=== PATIENT | female | born 1965 | race Caucasian/White ===

== ENCOUNTER → 2023-06-23 10:11 | Outpatient (BNVA) | payer MEDICAID, SELFPAY | PROVIDERS: Visit Provider Registered Nurse Neonatal Intensive Care | DX: Z20.828 Contact with and (suspected) exposure to other viral communicable diseases (principal) | CPT/HCPCS: 87400 ==

== ENCOUNTER 2023-11-01 13:01 | Outpatient (CLI) | payer OTHER, MEDICAID, SELFPAY ==
--- NOTE | 2023-11-01 13:07 | MM_ITS ---
WS: [id number] BILATERAL 3D TOMOSYNTHESIS DIGITAL SCREENING MAMMOGRAPHY WITH CAD CLINICAL INFORMATION: SCREENING HISTORY: Screening mammogram. No current complaints. COMPARISON: None. TECHNIQUE: Bilateral CC and MLO views. FINDINGS: Bilateral breast implants. The breasts are composed of heterogeneous fibroglandular density tissue, which can limit the detectio n of small underlying mass lesions. No suspicious mass, asymmetry, calcifications, or architectural d istortion. No evidence of malignancy. A few incidental punctate and lucent centered calcifications. MM/[place] [id number] IMPRESSION: BI-RADS: 2-Benign FOLLOW UP: 1 Year Follow-up Recommend return to annual screening mammography.
== END 2023-11-01 13:02 | disposition home or self-care (01) ==
LOC: RAD 13:01
PROVIDERS: Visit Provider Nurse Practitioner
DX: Z12.31 Encounter for screening mammogram for malignant neoplasm of breast (principal); R92.333 Mammographic heterogeneous density, bilateral breasts; R92.1 Mammographic calcification found on diagnostic imaging of breast
CPT/HCPCS: 77063; 77067

== ENCOUNTER → 2024-01-17 09:23 | Outpatient (BNVA) | payer OTHER, MEDICAID, SELFPAY | PROVIDERS: Visit Provider Family Medicine | DX: J98.8 Other specified respiratory disorders (principal) | CPT/HCPCS: 87400 ==

== ENCOUNTER → 2024-04-11 13:10 | Outpatient (BNVA) | payer OTHER, MEDICAID, SELFPAY | PROVIDERS: Visit Provider Podiatrist Foot & Ankle Surgery | DX: M79.672 Pain in left foot (principal); M20.22 Hallux rigidus, left foot | CPT/HCPCS: 73630 ==

== ENCOUNTER → 2024-04-13 10:30 | Outpatient (BNVA) | payer OTHER, MEDICAID, SELFPAY | PROVIDERS: Visit Provider Family Medicine | DX: Z00.00 Encounter for general adult medical examination without abnormal findings (principal); R00.2 Palpitations; K21.9 Gastro-esophageal reflux disease without esophagitis; E78.00 Pure hypercholesterolemia, unspecified; J45.40 Moderate persistent asthma, uncomplicated; F41.1 Generalized anxiety disorder; Z86.718 Personal history of other venous thrombosis and embolism; Z86.73 Personal history of transient ischemic attack (TIA), and cerebral infarction without residual deficits; K63.5 Polyp of colon; Z76.89 Persons encountering health services in other specified circumstances | CPT/HCPCS: 93005 ==

== ENCOUNTER → 2024-04-16 11:11 | Outpatient (BNVA) | payer OTHER, MEDICAID, SELFPAY | PROVIDERS: Visit Provider Nurse Practitioner | DX: M25.561 Pain in right knee (principal); M25.562 Pain in left knee; S83.242A Other tear of medial meniscus, current injury, left knee, initial encounter; M17.0 Bilateral primary osteoarthritis of knee; X58.XXXA Exposure to other specified factors, initial encounter; Z46.89 Encounter for fitting and adjustment of other specified devices | CPT/HCPCS: 73560; 73565 ==

== ENCOUNTER 2024-04-16 11:45 | Outpatient (CLI) | payer OTHER, MEDICAID, SELFPAY | END 2024-04-16 11:46 | disposition home or self-care (01) | LOC: SPT 11:46 | PROVIDERS: Visit Provider Nurse Practitioner | DX: Z46.89 Encounter for fitting and adjustment of other specified devices (principal); S83.206A Unspecified tear of unspecified meniscus, current injury, right knee, initial encounter; M17.0 Bilateral primary osteoarthritis of knee; X58.XXXA Exposure to other specified factors, initial encounter | CPT/HCPCS: L1812 ==

== ENCOUNTER 2024-04-23 11:14 | Outpatient (CLI) | payer OTHER, MEDICAID, SELFPAY ==
--- NOTE | 2024-04-23 11:45 | MR_ITS ---
WS: [id number] MRI RIGHT KNEE HISTORY: Right knee pain, locking and instability after fall COMPARISON: Radiograph 04/16/2024 Anterior cruciate ligament: Intact. Posterior cruciate ligament: Intact. Medial collateral ligament: Intact. Posterior lateral corner structures: Intact. Medial menisci: Abnormal contour of the posterior medial meniscus. Rounded contour of the posterior m eniscus. There is an additional low signal interbody signal measuring 3 x 5 mm which may be a menisca l fragment. Interbody fragment is adjacent to the PCL and medial to the midline. Lateral meniscus: Intact. Normal signal, size and shape. Extensor mechanism: Distal quadriceps tendon and patellar tendons are intact. Fluid and soft tissue: Small joint effusion. Moderate-sized Branham's cyst with internal heterogeneity extends over a length of 4.9 cm. Osseous and articular structures: Patellofemoral compartment: Mild loss of cartilage. Focal subchondral edema along the patellar eminen ce. Medial compartment: Mild narrowing of the medial compartment with diffuse chondromalacia. Lateral compartment: Mild narrowing of the lateral compartment with mild chondromalacia. Marrow edema along the anterior midline of the tibial plateau. MR/MR knee RT wo con* [id number] IMPRESSION: 1. Abnormal shape posterior horn medial meniscus with interbody low signal fra gment measuring 3 x 5 mm. This could very well be meniscal fragment adjacent to the PCL. 2. Marrow edema along the tibial plateau, just greatest lateral to the midline . No fracture identified. 3. Tricompartment osteoarthritis and chondromalacia. 4. Mildly complex Branham's cyst extends over a length of 4.9 cm.
== END 2024-04-23 11:15 | disposition home or self-care (01) ==
LOC: RAD 11:14
PROVIDERS: Visit Provider Nurse Practitioner
DX: S83.206A Unspecified tear of unspecified meniscus, current injury, right knee, initial encounter (principal); M25.561 Pain in right knee; X58.XXXA Exposure to other specified factors, initial encounter; R93.6 Abnormal findings on diagnostic imaging of limbs; M17.11 Unilateral primary osteoarthritis, right knee; M94.261 Chondromalacia, right knee; M71.21 Synovial cyst of popliteal space [Baker], right knee
CPT/HCPCS: 73721

== ENCOUNTER 2024-05-21 10:33 | Emergency (ER) | payer OTHER, MEDICAID, SELFPAY ==
--- NOTE | 2024-05-21 10:42 | XRR_ITS ---
PROCEDURE INFORMATION: Exam: XR Chest Exam date and time: 05/21/2024 10:47 AM Age: 58 years old Clinical indication: Cough; Additional info: Cough/congestion TECHNIQUE: Imaging protocol: Radiologic exam of the chest. Views: 1 view. COMPARISON: No relevant prior studies available. FINDINGS: Lungs: Unremarkable. No consolidation. Pleural spaces: Unremarkable. No pleural effusion. No pneumothorax. Heart/Mediastinum: Unremarkable. No cardiomegaly. Bones/joints: Unremarkable. XR/XR chest 1V portable [id number] IMPRESSION: No acute findings.
[2024-05-21 11:14] VITALS: BP 154/89; PULSE 89; TEMP 36.8; O2SAT 98; BMI 29.8
[2024-05-21 12:25] LABS: Influenza A NEGATIVE (Negative); Influenza B NEGATIVE (Negative); SARS-CoV-2 PCR NEGATIVE (Negative)
[2024-05-21 12:50] LABS: Respiratory Syncytial Virus Ce POSITIVE (Negative)
== END 2024-05-21 12:39 | disposition left against medical advice (07) ==
PROVIDERS: Physician Assistant; Emergency Provider Family Medicine; PCP Family Medicine
DX: Z53.21 Procedure and treatment not carried out due to patient leaving prior to being seen by health care provider (principal)
CPT/HCPCS: 71045; 87637

== ENCOUNTER 2024-06-12 14:50 | Outpatient (CLI) | payer OTHER, SELFPAY ==
[2024-06-12 16:22] LABS: Basophils # 0.1 10^3/uL (0.0-0.1); Basophils % 1.1 %; Eosinophils # 0.4 10^3/uL (0.0-0.8); Hematocrit 41.4 % (36-47); Lymphocytes % 35.9 %; Mean Corpuscular HGB Conc 33.3 g/dL (30-55); Mean Corpuscular Hemoglobin 28.5 pg (27-33); Mean Corpuscular Volume 85.4 fl (85-98); Mean Platelet Volume 9.5 fL (7.4-10.4); Monocytes # 0.7 10^3/uL (0.2-0.9); Monocytes % 7.8 %; Neutrophils # 4.15 10^3/uL (1.8-7.7); Nucleated Red Blood Cells % 0 %; Platelet Count 286 10^3/cmm (157-399); Red Blood Count 4.85 10^6/uL (3.85-5.65); Red Cell Distribution Width 14.2 % (12.1-15.1); White Blood Count 8.32 10^3/uL (3.29-11.43)
== END 2024-06-12 14:51 | disposition home or self-care (01) ==
PROVIDERS: PCP Family Medicine; Visit Provider Family Medicine
DX: Z00.00 Encounter for general adult medical examination without abnormal findings (principal)
CPT/HCPCS: 36415; 85025

== ENCOUNTER 2024-06-21 16:11 | Outpatient (CLI) | payer OTHER, SELFPAY ==
[2024-06-21 17:53] LABS: Alanine Aminotransferase 28 U/L (0-33); Albumin Level 4.2 g/dL (3.5-5.2); Alkaline Phosphatase 112 U/L (35-105); Anion Gap 16.6 (5-19); Aspartate Amino Transferase 26 U/L (0-32); Blood Urea Nitrogen 17 mg/dL (6-20); Carbon Dioxide 25 mmol/L (22-29); Chloride 101 mmol/L (98-107); Chol HDL Ratio 2.07 mg/dL (0.0-4.40); Cholesterol 168 mg/dL (0-200); Globulin 3.1 g/dL (1.3-4.6); Glomerular Filtration Rate 127.2 mL/min (90-130); Glucose 114 mg/dL (65-115); HDL Cholesterol 81 mg/dL (60-100); LDL Cholesterol Calculated 74 mg/dL (50-129); LDL HDL Ratio 0.91 RATIO (0.00-3.22); Osmolality Calculated 290 mOsm/kg (285-295); Potassium 3.6 mmol/L (3.5-5.1); Sodium 139 mmol/L (136-145); Thyroid Stimulating Hormone 4.95 uIU/mL (0.27-4.20); Total Bilirubin 0.2 mg/dL (0.15-1.2); Total Protein 7.3 g/dL (6.6-8.7); Triglycerides 64 mg/dL (0-150)
== END 2024-06-21 16:12 | disposition home or self-care (01) ==
LOC: LAB 16:12
PROVIDERS: PCP Family Medicine; Visit Provider Family Medicine
DX: Z00.00 Encounter for general adult medical examination without abnormal findings (principal)
CPT/HCPCS: 36415; 80053; 80061; 84443

== ENCOUNTER → 2024-06-25 12:39 | Outpatient (BNVA) | payer OTHER, SELFPAY | PROVIDERS: PCP Family Medicine; Visit Provider Family Medicine | DX: R68.89 Other general symptoms and signs (principal); R50.9 Fever, unspecified | CPT/HCPCS: 87400; 87426 ==

== ENCOUNTER 2024-07-11 07:04 | Emergency (ER) | payer OTHER, SELFPAY ==
[2024-07-11 07:10] VITALS: BP 168/86; PULSE 86; RESP 18; TEMP 36.6; O2SAT 99
--- NOTE | 2024-07-11 07:18 | ED_ITS ---
HPI - Skin/Abscess/Foreign Bdy 2 General: Chief complaint: Skin/Abscess/Foreign Body Stated complaint: facial swelling Time Seen by Provider: 07/11/24 07:06 History of Present Illness: 58-year-old female presents emergency ro om complaining of swelling in her right thigh and some redness. She was seen by her doctor yesterday and thought she had a conjunctivitis she was started on moxifloxacin. This morning she woke up she has increased discomfort on her cheek with increased swelling her vision is unchanged. Associated symptoms: Deny chills or fever(s) Related Data Home Medications ?Medication ?Instructions ?Recorded ?Confirmed aspirin 81 mg tablet,delayed 81 mg PO DAILY 04/13/24 0 07/11/24 release Previous Rx's ?Medication ?Instructions ?Recorded albuterol sulfate 90 mcg/actuation 2 puff inhalation Q 6H PRN 04/13/24 aerosol inhaler shortness of breath or wheez ing #3 ea montelukast 10 mg tablet 10 mg PO DAILY #90 tabs 03/28 10/19 (Singulair) omeprazole 20 mg capsule,delayed 20 mg PO DAILY #90 ca ps 04/13/24 release rosuvastatin 10 mg tablet (Crestor) 10 mg PO DAILY #90 tabs 04/13/24 venlafaxine 75 mg capsule,extended 75 mg PO DAILY #90 caps 04/13/24 release 24 hr (Effexor XR) meloxicam 15 mg tablet 15 mg PO DAILY #90 tabs 03/29 levothyroxine 50 mcg tablet 50 mcg PO DAILY #90 tabs 0 06/22/24 (Euthyrox) ondansetron 8 mg disintegrating 8 mg PO Q8H PRN nausea and 06/25/24 tablet vomiting #15 tabs amoxicillin 875 mg-potassium 1 tab PO BID #14 tabs clavulanate 125 mg tablet Allergies Allergy/AdvReac Type Severity Reaction Status Date / Time sulfa drugs Allergy hives Uncoded 07/10/24 08:46 Review of Systems 2 Const: Denies: fever(s) or chills Card: Denies: chest pain Resp: Denies: dyspnea GI: Denies: abdominal pain : Denies: dysuria, urinary frequency or urinary urgency Musc: Denies: neck pain or back pain Skin/Breast: Denies: rash PFSH ED 2 PFSH: Medical History Moderate intrinsic asthma 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; no residual ; says it was due to covid shot Hx of deep venous thrombosis had 2 separate ones GERD without esophagitis Generalized anxiety disorder Hypercholesterolemia Colon polyps Hearing deficit Surgical History Hx of colonoscopy Hx of arthroscopy of right knee History of tympanoplasty of left ear bilateral H/O breast augmentation History of partial hysterectomy removed L oophorectomy; still has R ovary; done for heavy bleeding, no fibroids History of placement of ear tubes History of cholecystectomy H/O shoulder surgery right H/O foot surgery L foot; has 4 screws Family History Father No problems noted. 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 Physical Exam 2 Const: GENERAL APPEARANCE: cooperative ORIENTATION/CONSCIOUSNESS: Yes awake, Yes oriented to person, Yes oriented to place and Yes oriented to time HENMT: COMMON NORMALS: normocephalic, atraumatic and hearing grossly normal bilaterally HEAD & SCALP: normocephalic and atraumatic Resp: COMMON NORMALS: normal respiratory effort, No retractions, No use of accessory muscles and clear to auscultation bilaterally AUSCULTATION: clear to auscultation bilaterally Cardio: COMMON NORMALS: regular rate, regular rhythm and No murmurs present (Cardio) RATE: regular rate RHYTHM: regular rhythm GI: COMMON NORMALS: Soft to palpation and No hepatosplenomegaly present A USCULTATION: Yes normoactive bowel sounds PALPATION: Yes Soft to palpation, No Tenderness to palpation present (GI), No Guarding due to palpation present (GI) and Yes No hepatosplenomegaly present Extremity: COMMON NORMALS: normal to inspection, capillary refill normal, no clubbing, cyanosis or edema, no calf tenderness and no pedal edema Neuro: SENSORIUM/ORIENTATION: Yes oriented to person, Yes oriented to place and Yes oriented to time Skin: COMMON NORMALS: no rashes or lesions noted GENERAL SKIN EXAM: no rashes or lesions noted Course 2 Vital Signs: Vital signs: Vital Signs Temperature 97.8 F 07/11/24 07:10 Pulse Rate 75 07/11/24 08:53 Respiratory Rate 18 07/11/24 07:10 Blood Pressure 168/86 07/11/24 07:35 Pulse Oximetry 99 07/11/24 08:53 Oxygen Delivery Me thod Room Air 07/11/24 07:10 MDM - Skin/Abscess/Foreign Bdy Medicial Decision Making CT does not show any periorbital cellulitis L preseptal. Will discharge on Augmentin and follow-up with primary care continue the drops given previously. Medical Records I reviewed the patient's medical records. Lab Data I reviewed the patient's lab results. 07/11/24 07:18 07/11/24 07:[address] 07/11/24 07:25 IMPRESSION: 1. Mild enhancement consistent with cellulitis centered along the RIGHT orbit extending inferiorly over the RIGHT maxillary sinus. 2. No subcutaneous abscess or subperiosteal abscess identified. 3. No post septal involvement of the RIGHT orbit. Laboratory Results WBC 7.01 10^3/uL (3.29-11.43) 07/11/24 07:18 RBC 5.28 10^6/uL (3.85-5.65) 07/11/24 07:18 Hgb 14.70 g/dL (11.27-16.99) 07/11/24 07:18 Hct 45.2 % (36-47) 07/11/24 07:18 MCV 85.6 fl (85-98) 07/11/24 07:18 MCH 27.8 pg (27-33) 07/11/24 07:18 MCHC 32.5 g/dL (30-55) 07/11/24 07:18 RDW 13.8 % (12.1-15.1) 07/11/24 07:18 Plt Count 302 10^3/cmm (157-399) 07/11/24 07:18 MPV 8.4 fL (7.4-10.4) 07/11/24 07:18 Neut % (Auto) 44.1 % 07/11/24 07:18 Lymph % (Auto) 42.5 % 07/11/24 07:18 [place] % (Auto) 6.7 % 07/11/24 07:18 Eos % (Auto) 5.1 % 07/11/24 07:18 Baso % (Auto) 1.3 % 07/11/24 07:18 Neut # (Auto) 3.09 10^3/uL (1.8-7.7) 07/11/24 07:18 Lymph # (Auto) 3.0 10^3/uL (0.8-4.8) 07/11/24 07:18 [place] # (Auto) 0.5 10^3/uL (0.2-0.9) 07/11/24 07:18 Eos # (Auto) 0.4 10^3/uL (0.0-0.8) 07/11/24 07:18 Baso # (Auto) 0.1 10^3/uL (0.0-0.1) 07/11/24 07:18 Nucleated RBC % (auto) 0 % 07/11/24 07:18 Nucleated RBCs # 0.0 /100WBC 07/11/24 07:18 Sodium 141 mmol/L (136-145) 07/11/24 07:18 Potassium 4.0 mmol/L (3.5-5.1) 07/11/24 07:18 Chloride 103 mmol/L (98-107) 07/11/24 07:18 Carbon Dioxide 25 mmol/L (22-29) 07/11/24 07:18 Anion Gap 17.0 (5-19) 07/11/24 07:18 BUN 14 mg/dL (6-20) 07/11/24 07:18 Creatinine 0.5 mg/dL (0.5-0.9) 07/11/24 07:18 GFR Calculation 127.2 mL/min (90-130) 07/11/24 07:18 Glucose 86 mg/dL (65-115) 07/11/24 07:18 Calculated Osmolality 292 mOsm/kg (285-295) 07/11/24 07:18 Calcium 9.4 mg/dL (8.5-10.5) 07/11/24 07:18 Total Bilirubin 0.3 mg/dL (0.15-1.2) 07/11/24 07:18 AST 27 U/L (0-32) 07/11/24 07:18 ALT 26 U/L (0-33) 07/11/24 07:18 Alkaline Phosphatase 112 U/L (35-105) H 07/11/24 07:18 Total Protein 7.9 g/dL (6.6-8.7) 07/11/24 07:18 Albumin 4.5 g/dL (3.5-5.2) 07/11/24 07:18 Globulin 3.4 g/dL (1.3-4.6) 07/11/24 07:18 All radiology interpretation(s) finalized by discharge Discharge Plan Discharge Patient Disposition: Home Clinical Impression: Preseptal cellulitis of right eye Condition: Stable Prescriptions: New amoxicillin-pot clavulanate 875-125 mg tablet 1 tab PO BID Qty: 14 0RF No Action aspirin 81 mg tablet,delayed release (DR/EC) 81 mg PO DAILY venlafaxine [Effexor XR] 75 mg capsule,extended release 24hr 75 mg PO DAILY Qty: 90 3RF omeprazole 20 mg capsule,delayed release(DR/EC) 20 mg PO DAILY Qty: 90 3RF montelukast [Singulair] 10 mg tablet 10 mg PO DAILY Qty: 90 3RF albuterol sulfate 90 mcg/actuation HFA aerosol inhaler 2 puff inhalation Q6H PRN (Reason: shortness of breath or wheezing) Qty: 3 3RF meloxicam 15 mg tablet 15 mg PO DAILY Qty: 90 0RF ondansetron 8 mg tablet,disintegrating 8 mg PO Q8H PRN (Reason: nausea and vomiting) Qty: 15 0RF rosuvastatin [Crestor] 10 mg tablet 10 mg PO DAILY Qty: 90 3RF levothyroxine [Euthyrox] 50 mcg tablet 50 mcg PO DAILY Qty: 90 3RF Discharge Orders: Discharge ED (Routine); Ordered 07/11/24 Ordered By: Yordy Mccarty Referrals: Gena Verdin MD [Primary Care Provider] - Discharge Diet: Usual diet Discharge Activity: Resume usual activity Patient Instructions: Periorbital Cellulitis (ED), Opioid Safety, Pain Management Activity Restrictions/Additional Instructions: Thank you for choosing [facility] for your healthcare needs today. It is very important that you follow up as instructed or that you return to the Emergency Department should you have concerns or if your condition changes or worsens in any way. You were seen today with swelling around her right eye. CT shows there is no infection around the globe of the eye itself however there is signs of cellulitis anterior to the eye and the eyelid and in the cheek. Recommend oral antibiotic 1 twice a day continue the eyedrops you were given yesterday follow- up with your primary care doctor if not improving if worsens return to the emergency room or see your primary care doctor immediately. Print Language: Bulgarian Coding Level of Care Code ED [employer] Hand for Bon Moore
--- NOTE | 2024-07-11 07:25 | CT_ITS ---
WS: [id number] CT ORBITS/FACIAL BONES WITH CONTRAST HISTORY: Infection Technique: All CT scans at [facility] use at least one of these dose optimization techniques: automated exposure control; mA and/or kV adjustment per patient size (includes targeted exams where dose is matched to clinical indication); or iterative reconstruction. DLP: 353.65 mGy.cm COMPARISON: None available. Contrast: Omnipaque 350 100 cc. Very mild soft tissue thickening and enhancement centered over the RIGHT orbit and globe extending inferiorly over the RIGHT maxillary sinus. No focal collection or abscess. No subperiosteal abscess. Postseptal orbital fat remains normal. The globe appears normal. Extraocular muscles are symmetric. No asymmetry of the optic nerves. There is a small air-fluid level in the LEFT maxillary sinus. RIGHT maxillary sinus is clear. No dental caries or significant right-sided sinus disease. The visualized mastoid air cells are clear. No bone destruction. Intracranial visualized structures are normal. CT/CT orbit BI w con [id number] IMPRESSION: 1. Mild enhancement consistent with cellulitis centered along the RIGHT orbit extending inferiorly over the RIGHT maxillary sinus. 2. No subcutaneous abscess or subperiosteal abscess identified. 3. No post septal involvement of the RIGHT orbit.
[2024-07-11 07:26] LABS: Basophils # 0.1 10^3/uL (0.0-0.1); Basophils % 1.3 %; Eosinophils # 0.4 10^3/uL (0.0-0.8); Eosinophils % 5.1 %; Hematocrit 45.2 % (36-47); Lymphocytes % 42.5 %; Mean Corpuscular HGB Conc 32.5 g/dL (30-55); Mean Corpuscular Hemoglobin 27.8 pg (27-33); Mean Corpuscular Volume 85.6 fl (85-98); Mean Platelet Volume 8.4 fL (7.4-10.4); Monocytes # 0.5 10^3/uL (0.2-0.9); Monocytes % 6.7 %; Neutrophils # 3.09 10^3/uL (1.8-7.7); Neutrophils % 44.1 %; Nucleated Red Blood Cells % 0 %; Platelet Count 302 10^3/cmm (157-399); Red Blood Count 5.28 10^6/uL (3.85-5.65); Red Cell Distribution Width 13.8 % (12.1-15.1); White Blood Count 7.01 10^3/uL (3.29-11.43)
[2024-07-11 07:35] VITALS: BP 168/86; O2SAT 98
[2024-07-11 07:46] LABS: Alanine Aminotransferase 26 U/L (0-33); Albumin Level 4.5 g/dL (3.5-5.2); Alkaline Phosphatase 112 U/L (35-105); Aspartate Amino Transferase 27 U/L (0-32); Blood Urea Nitrogen 14 mg/dL (6-20); Calcium 9.4 mg/dL (8.5-10.5); Carbon Dioxide 25 mmol/L (22-29); Chloride 103 mmol/L (98-107); Creatinine Clr Calc Pharmacy 113.0956; Globulin 3.4 g/dL (1.3-4.6); Glomerular Filtration Rate 127.2 mL/min (90-130); Glucose 86 mg/dL (65-115); Osmolality Calculated 292 mOsm/kg (285-295); Sodium 141 mmol/L (136-145); Total Bilirubin 0.3 mg/dL (0.15-1.2); Total Protein 7.9 g/dL (6.6-8.7)
[2024-07-11] MEDS: iohexol 350 mg/mL 500 mL Btl (per mL) IV (08:14)
[2024-07-11 08:53] VITALS: PULSE 75; O2SAT 99
== END 2024-07-11 08:54 | disposition home or self-care (01) ==
PROVIDERS: Emergency Provider Family Medicine; PCP Family Medicine
DX: L03.213 Periorbital cellulitis (principal)
CPT/HCPCS: 36415; 70481; 80053; 85025; 99285

== ENCOUNTER 2024-07-12 08:18 | Emergency (ER) | payer OTHER, SELFPAY ==
[2024-07-12 08:47] VITALS: BP 135/85; PULSE 82; RESP 20; TEMP 36.7; O2SAT 98; BMI 31.8
[2024-07-12 09:17] LABS: Basophils # 0.1 10^3/uL (0.0-0.1); Basophils % 0.9 %; Eosinophils # 0.4 10^3/uL (0.0-0.8); Eosinophils % 5.6 %; Hematocrit 45.7 % (36-47); Lymphocytes # 2.3 10^3/uL (0.8-4.8); Lymphocytes % 35.2 %; Mean Corpuscular HGB Conc 31.9 g/dL (30-55); Mean Corpuscular Hemoglobin 28.1 pg (27-33); Mean Corpuscular Volume 88.1 fl (85-98); Mean Platelet Volume 8.2 fL (7.4-10.4); Monocytes # 0.4 10^3/uL (0.2-0.9); Monocytes % 6.5 %; Neutrophils % 51.5 %; Nucleated Red Blood Cells % 0 %; Platelet Count 296 10^3/cmm (157-399); Red Blood Count 5.19 10^6/uL (3.85-5.65); Red Cell Distribution Width 13.8 % (12.1-15.1)
[2024-07-12 09:32] LABS: Alanine Aminotransferase 29 U/L (0-33); Albumin Level 4.2 g/dL (3.5-5.2); Alkaline Phosphatase 105 U/L (35-105); Aspartate Amino Transferase 29 U/L (0-32); Blood Urea Nitrogen 12 mg/dL (6-20); Calcium 9.1 mg/dL (8.5-10.5); Carbon Dioxide 25 mmol/L (22-29); Chloride 103 mmol/L (98-107); Globulin 3.2 g/dL (1.3-4.6); Glomerular Filtration Rate 127.2 mL/min (90-130); Glucose 95 mg/dL (65-115); Osmolality Calculated 290 mOsm/kg (285-295); Sodium 140 mmol/L (136-145); Total Bilirubin 0.3 mg/dL (0.15-1.2); Total Protein 7.4 g/dL (6.6-8.7)
[2024-07-12] MEDS: prochlorperazine 10 mg/2 mL Inj IVP (10:38)
[2024-07-12 11:59] VITALS: BP 150/75; PULSE 70; O2SAT 97
--- NOTE | 2024-07-12 12:38 | ED_ITS ---
HPI - Headache 2 General: Chief Complaint: Headache Stated Complaint: n,v, headache Time Seen by Provider: 07/12/24 08:23 History of Present Illness: 58-year-old male presents to the emergen cy room with complaint of a headache. She also had some nausea and vomiting. We seen the patient yesterday she had some swelling in redness emanating out of the right lower eyelid and some swelling over the upper cheek. CT was done it was all preseptal cellulitis no orbital cellulitis she was discharged home on Augmentin overnight she had some nausea and vomiting she has bit a headache with it as well no vision changes. Associated symptoms: Deny chest pain, fever(s) or rash Related Data Home Medications ?Medication ?Instructions ?Recorded ?Confirmed aspirin 81 mg tablet,delayed 81 mg PO DAILY 04/13/24 0 07/12/24 release Previous Rx's ?Medication ?Instructions ?Recorded albuterol sulfate 90 mcg/actuation 2 puff inhalation Q 6H PRN 04/13/24 aerosol inhaler shortness of breath or wheez ing #3 ea montelukast 10 mg tablet 10 mg PO DAILY #90 tabs 03/28 10/19 (Singulair) omeprazole 20 mg capsule,delayed 20 mg PO DAILY #90 ca ps 04/13/24 release rosuvastatin 10 mg tablet (Crestor) 10 mg PO DAILY #90 tabs 04/13/24 venlafaxine 75 mg capsule,extended 75 mg PO DAILY #90 caps 04/13/24 release 24 hr (Effexor XR) meloxicam 15 mg tablet 15 mg PO DAILY #90 tabs 03/29 levothyroxine 50 mcg tablet 50 mcg PO DAILY #90 tabs 0 06/22/24 (Euthyrox) ondansetron 8 mg disintegrating 8 mg PO Q8H PRN nausea and 06/25/24 tablet vomiting #15 tabs amoxicillin 875 mg-potassium 1 tab PO BID #14 tabs clavulanate 125 mg tablet cefdinir 300 mg capsule 300 mg PO BID 5 days #10 cap s 07/12/24 promethazine 25 mg tablet 25 mg PO Q6H PRN nausea and 07/12/24 vomiting #20 tabs Allergies Allergy/AdvReac Type Severity Reaction Status Date / Time sulfa drugs Allergy hives Uncoded 07/12/24 08:56 Review of Systems 2 Const: Denies: fever(s) or chills Card: Denies: chest pain Resp: Denies: dyspnea GI: Denies: abdominal pain : Denies: dysuria, urinary frequency or urinary urgency Musc: Denies: neck pain or back pain Skin/Breast: Denies: rash PFSH ED 2 PFSH: Medical History Moderate intrinsic asthma 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; no residual ; says it was due to covid shot Hx of deep venous thrombosis had 2 separate ones GERD without esophagitis Generalized anxiety disorder Hypercholesterolemia Colon polyps Hearing deficit Surgical History Hx of colonoscopy Hx of arthroscopy of right knee History of tympanoplasty of left ear bilateral H/O breast augmentation History of partial hysterectomy removed L oophorectomy; still has R ovary; done for heavy bleeding, no fibroids History of placement of ear tubes History of cholecystectomy H/O shoulder surgery right H/O foot surgery L foot; has 4 screws Family History Father No problems noted. 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 Physical Exam 2 Const: COMMON NORMALS: no acute distress GENERAL APPEARANCE: cooperative and comfortable ORIENTATION/CONSCIOUSNESS: Yes awake, Yes oriented to person, Yes oriented to place and Yes oriented to time HENMT: COMMON NORMALS: normocephalic, atraumatic and hearing grossly normal bilaterally HEAD & SCALP: normocephalic and atraumatic OTHER: Examination of the face the redness and erythema are actually improved from yesterday the lower eyelid on the right looks better than yesterday the swelling is decreased still mild tenderness with palpation over the zygomatic arch no cervical lymphadenopathy Resp: COMMON NORMALS: normal respiratory effort, No retractions, No use of accessory muscles and clear to auscultation bilaterally AUSCULTATION: clear to auscultation bilaterally Cardio: COMMON NORMALS: regular rate, regular rhythm and No murmurs present (Cardio) RATE: regular rate RHYTHM: regular rhythm GI: COMMON NORMALS: Soft to palpation and No hepatosplenomegaly present A USCULTATION: Yes normoactive bowel sounds PALPATION: Yes Soft to palpation, No Tenderness to palpation present (GI), No Guarding due to palpation present (GI) and Yes No hepatosplenomegaly present Extremity: COMMON NORMALS: normal to inspection, capillary refill normal, no clubbing, cyanosis or edema, no calf tenderness and no pedal edema Neuro: SENSORIUM/ORIENTATION: Yes oriented to person, Yes oriented to place and Yes oriented to time Skin: COMMON NORMALS: no rashes or lesions noted GENERAL SKIN EXAM: no rashes or lesions noted Course 2 Vital Signs: Vital signs: Vital Signs Temperature 98.1 F 07/12/24 08:47 Pulse Rate 70 07/12/24 11:59 Respiratory Rate 20 H 07/12/24 08:47 Blood Pressure 150/75 07/12/24 11:59 Pulse Oximetry 97 07/12/24 11:59 Oxygen Delivery Me thod Room Air 07/12/24 08:47 MDM - Headache Medical Decision Making Preseptal cellulitis actually looks improved. Headache is better after treated here in the emergency room I suspect the nausea and vomiting are from the Augmentin. Will switch her to cefdinir 300 mg twice daily have her stop the Augmentin. Cefdinir is for 5 days. In addition has continued on eyedrops previously prescribed finally gave the patient promethazine as well for any further symptoms of nausea and vomiting clear liquid diet and advance as tolerated Lab Data 07/12/24 09:06 07/12/24 09:06 Laboratory Results WBC 6.60 10^3/uL (3.29-11.43) 07/12/24 09:06 RBC 5.19 10^6/uL (3.85-5.65) 07/12/24 09:06 Hgb 14.60 g/dL (11.27-16.99) 07/12/24 09:06 Hct 45.7 % (36-47) 07/12/24 09:06 MCV 88.1 fl (85-98) 07/12/24 09:06 MCH 28.1 pg (27-33) 07/12/24 09:06 MCHC 31.9 g/dL (30-55) 07/12/24 09:06 RDW 13.8 % (12.1-15.1) 07/12/24 09:06 Plt Count 296 10^3/cmm (157-399) 07/12/24 09:06 MPV 8.2 fL (7.4-10.4) 07/12/24 09:06 Neut % (Auto) 51.5 % 07/12/24 09:06 Lymph % (Auto) 35.2 % 07/12/24 09:06 [place] % (Auto) 6.5 % 07/12/24 09:06 Eos % (Auto) 5.6 % 07/12/24 09:06 Baso % (Auto) 0.9 % 07/12/24 09:06 Neut # (Auto) 3.40 10^3/uL (1.8-7.7) 07/12/24 09:06 Lymph # (Auto) 2.3 10^3/uL (0.8-4.8) 07/12/24 09:06 [place] # (Auto) 0.4 10^3/uL (0.2-0.9) 07/12/24 09:06 Eos # (Auto) 0.4 10^3/uL (0.0-0.8) 07/12/24 09:06 Baso # (Auto) 0.1 10^3/uL (0.0-0.1) 07/12/24 09:06 Nucleated RBC % (auto) 0 % 07/12/24 09:06 Nucleated RBCs # 0.0 /100WBC 07/12/24 09:06 Sodium 140 mmol/L (136-145) 07/12/24 09:06 Potassium 4.0 mmol/L (3.5-5.1) 07/12/24 09:06 Chloride 103 mmol/L (98-107) 07/12/24 09:06 Carbon Dioxide 25 mmol/L (22-29) 07/12/24 09:06 Anion Gap 16.0 (5-19) 07/12/24 09:06 BUN 12 mg/dL (6-20) 07/12/24 09:06 Creatinine 0.5 mg/dL (0.5-0.9) 07/12/24 09:06 GFR Calculation 127.2 mL/min (90-130) 07/12/24 09:06 Glucose 95 mg/dL (65-115) 07/12/24 09:06 Calculated Osmolality 290 mOsm/kg (285-295) 07/12/24 09:06 Calcium 9.1 mg/dL (8.5-10.5) 07/12/24 09:06 Total Bilirubin 0.3 mg/dL (0.15-1.2) 07/12/24 09:06 AST 29 U/L (0-32) 07/12/24 09:06 ALT 29 U/L (0-33) 07/12/24 09:06 Alkaline Phosphatase 105 U/L (35-105) 07/12/24 09:06 Total Protein 7.4 g/dL (6.6-8.7) 07/12/24 09:06 Albumin 4.2 g/dL (3.5-5.2) 07/12/24 09:06 Globulin 3.2 g/dL (1.3-4.6) 07/12/24 09:06 All radiology interpretation(s) finalized by discharge Discharge Plan Discharge Patient Disposition: Home Clinical Impression: Preseptal cellulitis of right eye, Medication side effect Condition: Stable Prescriptions: New cefdinir 300 mg capsule 300 mg PO BID 5 Days Qty: 10 0RF promethazine 25 mg tablet 25 mg PO Q6H PRN (Reason: nausea and vomiting) Qty: 20 0RF No Action aspirin 81 mg tablet,delayed release (DR/EC) 81 mg PO DAILY venlafaxine [Effexor XR] 75 mg capsule,extended release 24hr 75 mg PO DAILY Qty: 90 3RF omeprazole 20 mg capsule,delayed release(DR/EC) 20 mg PO DAILY Qty: 90 3RF montelukast [Singulair] 10 mg tablet 10 mg PO DAILY Qty: 90 3RF albuterol sulfate 90 mcg/actuation HFA aerosol inhaler 2 puff inhalation Q6H PRN (Reason: shortness of breath or wheezing) Qty: 3 3RF meloxicam 15 mg tablet 15 mg PO DAILY Qty: 90 0RF ondansetron 8 mg tablet,disintegrating 8 mg PO Q8H PRN (Reason: nausea and vomiting) Qty: 15 0RF rosuvastatin [Crestor] 10 mg tablet 10 mg PO DAILY Qty: 90 3RF levothyroxine [Euthyrox] 50 mcg tablet 50 mcg PO DAILY Qty: 90 3RF amoxicillin-pot clavulanate 875-125 mg tablet 1 tab PO BID Qty: 14 0RF Discharge Orders: Discharge ED (Routine); Ordered 07/12/24 Ordered By: Yordy Mccarty Referrals: Gena Verdin MD [Primary Care Provider] - Discharge Diet: Usual diet Discharge Activity: Increase activity as tolerated Patient Instructions: Opioid Safety, Pain Management Activity Restrictions/Additional Instructions: Thank you for choosing [facility] for your healthcare needs today. It is very important that you follow up as instructed or that you return to the Emergency Department should you have concerns or if your condition changes or worsens in any way. You were seen in the emergency room with complaints of nausea vomiting and a headache. Your headache responded to the medications given. Suspect the nausea vomiting is a side effect of your Augmentin. Will have you to stop the Augmentin and start cefdinir 300 mg 1 pill twice a day for 5 days. Also given promethazine to use as needed. The preseptal cellulitis that you were seen for yesterday appears to have improved since she was seen yesterday complete the 5- day course of antibiotics prescribed today. Print Language: Mongolian Coding Level of Care Code ED Etl [employer] Developer for [employer]
== END 2024-07-12 11:59 | disposition home or self-care (01) ==
PROVIDERS: Emergency Provider Family Medicine; PCP Family Medicine
DX: L03.213 Periorbital cellulitis (principal); T50.905A Adverse effect of unspecified drugs, medicaments and biological substances, initial encounter; X58.XXXA Exposure to other specified factors, initial encounter
CPT/HCPCS: 36415; 80053; 85025; 96374; 99284; J0780

== ENCOUNTER 2024-08-15 10:00 | Emergency (ER) | payer OTHER, SELFPAY ==
[2024-08-15 10:02] VITALS: BP 151/84; PULSE 80; RESP 16; TEMP 36.4; O2SAT 99
--- NOTE | 2024-08-15 10:14 | ECG_ITS ---
[facility] Test Date: 2024-08-15 Pat Name: Anni Wolfe Department: Room: Gender: Female [employer]her: : 1965 Requested By: Yordy Cotter Order Number: [id number] [place]us MD: Margarita Vail M.D. Measurements Intervals Randall Rate: 82 P: 51 WI: 104 QRS: 21 QRSD: 94 T: 83 QT: 360 QTc: 421 Interpretive Statements SINUS RHYTHM WITH SHORT WI INTERVAL SEPTAL MYOCARDIAL INFARCTION , OF INDETERMINATE AGE [40+ ms Q WAVE IN V1/V2] No previous ECG available for comparison Electronically Signed On 08-16-2024 18:09:18 CDT by Margarita Vail M.D. [email or web address]
--- NOTE | 2024-08-15 10:15 | CT_ITS ---
WS: [id number] CT HEAD TECHNIQUE: Noncontrast CT of the head obtained from the skullbase to the vertex. CLINICAL INFORMATION: r sided weakness x 3 days COMPARISON: None. DLP: 977.[address] scans at [facility] use at least one of these dose optimization techniques: automated exposure control; mA and/or kV adjustment per patient size (includes targeted exams where dose is matched to clinical indication); or iterative reconstruction. FINDINGS: No evidence of intracranial hemorrhage or mass effect. Ventricular system and basal cisterns are patent. Mild small vessel changes with mild parenchymal volume loss. No extra-axial fluid collections. No evidence of mass or mass effect. LEFT maxillary sinusitis. Prior postoperative changes LEFT canal wall up partial mastoidectomy. Opacification LEFT mastoid tip. CT/CT head wo con* [id number] IMPRESSION: 1. No evidence of intracranial hemorrhage or mass effect. 2. LEFT maxillary sinusitis. Prior postoperative changes LEFT partial mastoide ctomy. 3. No acute intracranial findings.
--- NOTE | 2024-08-15 10:23 | W.ED.WEAKNES ---
HPI - Weakness General: Chief complaint: Weakness Stated complaint: rt side weakness Time Seen by Provider: 08/15/24 10:14 History of Present Illness: 58-year-old female presents to the emergency room complaining of right-sided weakness has been going on for the last 3 days. Her last known well was been 3 days ago she has weakness in her right arm and leg as well as decreased sensation to the right arm leg and face. Patient is alert states she also had a bit of a headache. She has history of a previous stroke states she received tPA for in December 2020 she denies any chest pain no recent head trauma. Associated symptoms: Denies chest pain, chills, dysuria or fever(s) Review of Systems Const: Denies: fever(s) or chills Card: Denies: chest pain Resp: Denies: dyspnea GI: Denies: abdominal pain : Denies: dysuria, urinary frequency or urinary urgency Musc: Denies: neck pain or back pain Skin/Breast: Denies: rash PFSH ED PFSH: Medical History Moderate intrinsic asthma 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; no residual ; says it was due to covid shot Hx of deep venous thrombosis had 2 separate ones GERD without esophagitis Generalized anxiety disorder Hypercholesterolemia Colon polyps Hearing deficit Surgical History Hx of colonoscopy Hx of arthroscopy of right knee History of tympanoplasty of left ear bilateral H/O breast augmentation History of partial hysterectomy removed L oophorectomy; still has R ovary; done for heavy bleeding, no fibroids History of placement of ear tubes History of cholecystectomy H/O shoulder surgery right H/O foot surgery L foot; has 4 screws Family History Father No problems noted. 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 Physical Exam Const: GENERAL APPEARANCE: cooperative ORIENTATION/CONSCIOUSNESS: Yes awake, Yes oriented to person, Yes oriented to place and Yes oriented to time HENMT: COMMON NORMALS: normocephalic, atraumatic and hearing grossly normal bilaterally HEAD & SCALP: normocephalic and atraumatic Resp: COMMON NORMALS: normal respiratory effort, No retractions, No use of accessory muscles and clear to auscultation bilaterally AUSCULTATION: clear to auscultation bilaterally Cardio: COMMON NORMALS: regular rate, regular rhythm and No murmurs present (Cardio) RATE: regular rate RHYTHM: regular rhythm GI: COMMON NORMALS: Soft to palpation and No hepatosplenomegaly present AUSCULTATION: Yes normoactive bowel sounds PALPATION: Yes Soft to palpation, No Tenderness to palpation present (GI), No Guarding due to palpation present (GI) and Yes No hepatosplenomegaly present Extremity: COMMON NORMALS: normal to inspection, capillary refill normal, no clubbing, cyanosis or edema, no calf tenderness and no pedal edema Neuro: SENSORIUM/ORIENTATION: Yes oriented to person, Yes oriented to place and Yes oriented to time Skin: COMMON NORMALS: no rashes or lesions noted GENERAL SKIN EXAM: no rashes or lesions noted Course Vital Signs: Vital signs: Vital Signs Temperature 97.6 F 08/15/24 10:02 Pulse Rate 76 08/15/24 11:10 Respiratory Rate 16 08/15/24 10:02 Blood Pressure 159/80 08/15/24 11:10 Pulse Oximetry 100 08/15/24 11:10 Oxygen Delivery Me thod Room Air 08/15/24 10:02 MDM - Weakness Medical Decision Making Patient has weakness on the right side. It has been going on for 3 days now. She actually wants to go back to work as suspect she may have had a recent stroke she is outside the window for any kind of intervention her NIH score at best is a 5. We tested her after the workup was done and is unchanged. Will put her back on clopidogrel and increase her rosuvastatin to 20 mg daily set up for an outpatient MRI of the head as well as an MRA of the head and neck and follow-up with neurology return for further problems. Finally we will add amlodipine 2.5 mg daily for her blood pressure. Medical Records I reviewed the patient's medical records. Lab Data I reviewed the patient's lab results. 08/15/24 10:18 08/15/24 10:[address] 08/15/24 10:15 IMPRESSION: 1. No evidence of intracranial hemorrhage or mass effect. 2. LEFT maxillary sinusitis. Prior postoperative changes LEFT partial mastoidectomy. 3. No acute intracranial findings. Laboratory Results WBC 7.14 10^3/uL (3.29-11.43) 08/15/24 10:18 RBC 5.02 10^6/uL (3.85-5.65) 08/15/24 10:18 Hgb 14.30 g/dL (11.27-16.99) 08/15/24 10:18 Hct 43.7 % (36-47) 08/15/24 10:18 MCV 87.1 fl (85-98) 08/15/24 10:18 MCH 28.5 pg (27-33) 08/15/24 10:18 MCHC 32.7 g/dL (30-55) 08/15/24 10:18 RDW 13.6 % (12.1-15.1) 08/15/24 10:18 Plt Count 309 10^3/cmm (157-399) 08/15/24 10:18 MPV 8.4 fL (7.4-10.4) 08/15/24 10:18 Neut % (Auto) 45.4 % 08/15/24 10:18 Lymph % (Auto) 41.3 % 08/15/24 10:18 Calvert % (Auto) 6.4 % 08/15/24 10:18 Eos % (Auto) 5.6 % 08/15/24 10:18 Baso % (Auto) 1.0 % 08/15/24 10:18 Neut # (Auto) 3.24 10^3/uL (1.8-7.7) 08/15/24 10:18 Lymph # (Auto) 3.0 10^3/uL (0.8-4.8) 08/15/24 10:18 Calvert # (Auto) 0.5 10^3/uL (0.2-0.9) 08/15/24 10:18 Eos # (Auto) 0.4 10^3/uL (0.0-0.8) 08/15/24 10:18 Baso # (Auto) 0.1 10^3/uL (0.0-0.1) 08/15/24 10:18 Nucleated RBC % (auto) 0 % 08/15/24 10:18 Nucleated RBCs # 0.0 /100WBC 08/15/24 10:18 Sodium 140 mmol/L (136-145) 08/15/24 10:18 Potassium 3.8 mmol/L (3.5-5.1) 08/15/24 10:18 Chloride 101 mmol/L (98-107) 08/15/24 10:18 Carbon Dioxide 25 mmol/L (22-29) 08/15/24 10:18 Anion Gap 17.8 (5-19) 08/15/24 10:18 BUN 13 mg/dL (6-20) 08/15/24 10:18 Creatinine 0.4 mg/dL (0.5-0.9) L 08/15/24 10:18 GFR Calculation 164.5 mL/min (90-130) H 08/15/24 10:18 Glucose 99 mg/dL (65-115) 08/15/24 10:18 Calculated Osmolality 290 mOsm/kg (285-295) 08/15/24 10:18 Calcium 9.3 mg/dL (8.5-10.5) 08/15/24 10:18 Total Bilirubin 0.3 mg/dL (0.15-1.2) 08/15/24 10:18 AST 41 U/L (0-32) H 08/15/24 10:18 ALT 35 U/L (0-33) H 08/15/24 10:18 Alkaline Phosphatase 130 U/L (35-105) H 08/15/24 10:18 Total Protein 7.5 g/dL (6.6-8.7) 08/15/24 10:18 Albumin 4.2 g/dL (3.5-5.2) 08/15/24 10:18 Globulin 3.3 g/dL (1.3-4.6) 08/15/24 10:18 All radiology interpretation(s) finalized by discharge Discharge Plan Discharge Patient Disposition: Home Clinical Impression: CVA (cerebral vascular accident) Condition: Stable Prescriptions: New clopidogrel 75 mg tablet 75 mg PO DAILY Qty: 30 0RF rosuvastatin 20 mg capsule, sprinkle 20 mg PO DAILY Qty: 30 0RF amlodipine 2.5 mg tablet 2.5 mg PO DAILY Qty: 30 0RF No Action aspirin 81 mg tablet,delayed release (DR/EC) 81 mg PO DAILY venlafaxine [Effexor XR] 75 mg capsule,extended release 24hr 75 mg PO DAILY Qty: 90 3RF omeprazole 20 mg capsule,delayed release(DR/EC) 20 mg PO DAILY Qty: 90 3RF montelukast [Singulair] 10 mg tablet 10 mg PO DAILY Qty: 90 3RF albuterol sulfate 90 mcg/actuation HFA aerosol inhaler 2 puff inhalation Q6H PRN (Reason: shortness of breath or wheezing) Qty: 3 3RF rosuvastatin [Crestor] 10 mg tablet 10 mg PO DAILY Qty: 90 3RF levothyroxine [Euthyrox] 50 mcg tablet 50 mcg PO DAILY Qty: 90 3RF acetaminophen [Tylenol Arthritis] 650 mg Tablet Extended Release 650 mg PO Q12H PRN (Reason: Pain) ibuprofen [Advil] 200 mg Tablet 400 mg PO Q6H PRN (Reason: Pain (Scale Score 1-3)) One-A-Day Women's 50 Plus 400 mcg-500 mg calcium-20 mcg Tablet 1 tab PO DAILY Probiotic 3 billion cell Capsule 3,000 mmu cells PO DAILY Rx Instructions: administer with a meal Discharge Orders: Discharge ED (Routine); Ordered 08/15/24 Ordered By: Yordy Mccarty Referrals: Gena Verdin MD [Primary Care Provider, Family Practice] Discharge Diet: Usual diet Discharge Activity: Increase activity as tolerated Patient Instructions: Opioid Safety, Pain Management Activity Restrictions/Additional Instructions: Thank you for choosing [facility] for your healthcare needs today. It is very important that you follow up as instructed or that you return to the Emergency Department should you have concerns or if your condition changes or worsens in any way. You are seen in the emergency room with 3 days of weakness on your right side. CT of your head did not show any abnormalities. After discussion we have elected to discharge you home we do recommend that you add clopidogrel 75 mg daily. Continue taking baby aspirin daily and increase your rosuvastatin to 20 mg daily. e learning manager will make arrangements for you to have an MRI of your head and follow-up with neurology. Finally recommend that you add amlodipine 2.5 mg daily to your medication list. Stand Alone Forms: Work/School Release Print Language: Cymraes Coding Level of Care Code ED Interlocking Machine Operator for Chg Fwd Related Data Home Medications ?Medication ?Instructions ?Recorded ?Confirmed aspirin 81 mg tablet,delayed 81 mg PO DAILY 04/13/24 08/15/24 release acetaminophen 650 mg 650 mg PO Q12H PRN Pain 08/15/24 08/15/24 tablet,extended release ibuprofen 200 mg tablet (Advil) 400 mg PO Q6H PRN Pain (Scale 08/15/24 08/15/24 Score 1-3) lactobacillus combination no.4 3 3,000 mmu cells PO DAILY 08/15/24 08/15/24 billion cell capsule (Probiotic) mdophitt-rdk-dktwo ac 400 1 tab PO DAILY 08/15/24 08/15/24 mcg-calcium carb 500 mg-vit K1 20 mcg tablet Previous Rx's ?Medication ?Instructions ?Recorded albuterol sulfate 90 mcg/actuation 2 puff inhalation Q6H PRN 04/13/24 aerosol inhaler shortness of breath or wheezing #3 ea montelukast 10 mg tablet 10 mg PO DAILY #90 tabs 04/13/24 (Singulair) omeprazole 20 mg capsule,delayed 20 mg PO DAILY #90 caps 04/13/24 release rosuvastatin 10 mg tablet (Crestor) 10 mg PO DAILY #90 tabs 04/13/24 venlafaxine 75 mg capsule,extended 75 mg PO DAILY #90 caps 04/13/24 release 24 hr (Effexor XR) levothyroxine 50 mcg tablet 50 mcg PO DAILY #90 tabs 06/22/24 (Euthyrox) amlodipine 2.5 mg tablet 2.5 mg PO DAILY #30 tabs 08/15/24 clopidogrel 75 mg tablet 75 mg PO DAILY #30 tabs 08/15/24 rosuvastatin 20 mg sprinkle capsule 20 mg PO DAILY #30 caps 08/15/24 Allergies Allergy/AdvReac Type Severity Reaction Status Date / Time sulfa drugs Allergy hives Uncoded 07/26/24 07:46 NIH stroke score NIHSS Level Of Consciousness - 1a: 0 Level Of Consciousness Questions - 1b: Both Correct Level Of Consciousness Commands - 1c: Both Correct Best Gaze - 2: Normal Visual Haley - 3: No Visual Loss Facial Palsy - 4: Normal Motor Arm Right - 5: Drift Motor Arm Left - 5: No Drift Motor Leg Right - 6: Drift Motor Leg Left - 6: No Drift Limb Ataxia - 7: Present In Two Limbs Sensory - 8: Mild To Moderate Loss Best Language - 9: No Aphasia Dysarthia - 10: Normal Extinction And Inattention - 11: 0 Score Total Score: 5
[2024-08-15 10:39] LABS: Basophils # 0.1 10^3/uL (0.0-0.1); Eosinophils # 0.4 10^3/uL (0.0-0.8); Eosinophils % 5.6 %; Hematocrit 43.7 % (36-47); Lymphocytes % 41.3 %; Mean Corpuscular HGB Conc 32.7 g/dL (30-55); Mean Corpuscular Hemoglobin 28.5 pg (27-33); Mean Corpuscular Volume 87.1 fl (85-98); Mean Platelet Volume 8.4 fL (7.4-10.4); Monocytes # 0.5 10^3/uL (0.2-0.9); Monocytes % 6.4 %; Neutrophils # 3.24 10^3/uL (1.8-7.7); Neutrophils % 45.4 %; Nucleated Red Blood Cells % 0 %; Platelet Count 309 10^3/cmm (157-399); Red Blood Count 5.02 10^6/uL (3.85-5.65); Red Cell Distribution Width 13.6 % (12.1-15.1); White Blood Count 7.14 10^3/uL (3.29-11.43)
[2024-08-15 10:51] LABS: Alanine Aminotransferase 35 U/L (0-33); Albumin Level 4.2 g/dL (3.5-5.2); Alkaline Phosphatase 130 U/L (35-105); Anion Gap 17.8 (5-19); Aspartate Amino Transferase 41 U/L (0-32); Blood Urea Nitrogen 13 mg/dL (6-20); Calcium 9.3 mg/dL (8.5-10.5); Carbon Dioxide 25 mmol/L (22-29); Chloride 101 mmol/L (98-107); Creatinine Clr Calc Pharmacy 140.2113; Globulin 3.3 g/dL (1.3-4.6); Glomerular Filtration Rate 164.5 mL/min (90-130); Glucose 99 mg/dL (65-115); Osmolality Calculated 290 mOsm/kg (285-295); Potassium 3.8 mmol/L (3.5-5.1); Sodium 140 mmol/L (136-145); Total Bilirubin 0.3 mg/dL (0.15-1.2); Total Protein 7.5 g/dL (6.6-8.7)
[2024-08-15 11:10] VITALS: BP 159/80; PULSE 76; O2SAT 100
[2024-08-15 13:20] VITALS: BP 165/94; PULSE 79; O2SAT 100
== END 2024-08-15 13:22 | disposition home or self-care (01) ==
PROVIDERS: Emergency Provider Family Medicine; PCP Family Medicine
DX: I63.9 Cerebral infarction, unspecified (principal); Z79.82 Long term (current) use of aspirin
CPT/HCPCS: 36415; 70450; 80053; 85025; 93005; 99284

== ENCOUNTER → 2024-08-17 10:43 | Outpatient (BNVA) | payer OTHER, SELFPAY | PROVIDERS: PCP Family Medicine; Visit Provider Family Medicine | DX: M17.0 Bilateral primary osteoarthritis of knee (principal) | CPT/HCPCS: 86617 ==

== ENCOUNTER → 2024-08-22 15:02 | Outpatient (BNVA) | payer OTHER, SELFPAY | PROVIDERS: PCP Family Medicine; Visit Provider Family Medicine | DX: M17.0 Bilateral primary osteoarthritis of knee (principal) | CPT/HCPCS: 86617 ==

== ENCOUNTER 2024-09-07 14:57 | Outpatient (CLI) | payer OTHER, SELFPAY ==
--- NOTE | 2024-09-07 14:30 | MR_ITS ---
WS: [id number] MRI HEAD WITHOUT CONTRAST TECHNIQUE: Sagittal T1, T2 axial, T2 axial FLAIR, axial and coronal T1 images, axial susceptibility weighted imaging, axial diffusion weighted images, and coronal T2 images were obtained. CLINICAL INFORMATION: R arm, leg, face weakness--had for 3 days; CT neg FINDINGS: No evidence of restricted diffusion to suggest acute ischemia. No suspicious intracranial signal abnormalities. Minimal small vessel changes. No significant parenchymal volume loss. Normal posterior fossa. Normal vascular flow voids at the skull base. No extra-axial fluid collections. No evidence of mass or mass effect. Air-fluid level in the LEFT maxillary sinus compatible with sinusitis. Mucosal thickening LEFT mastoid air cells. Prior postoperative changes LEFT partial mastoidectomy. No hemosiderin. Normal optic chiasm and pituitary infundibulum. Temporal lobes hippocampal formations are normal in appearance. Normal optic chiasm and pituitary infundibulum. No other suspicious findings. MR/MR head wo con* [id number] IMPRESSION: 1. No evidence of restricted diffusion to suggest acute ischemia. 2. Minimal small vessel changes. No significant parenchymal volume loss. 3. No hemosiderin on the susceptibility weighted images. 4. LEFT maxillary sinusitis. 5. Small amount of fluid in the LEFT mastoid air cells and middle ear. 6. Prior postoperative changes LEFT partial mastoidectomy.
--- NOTE | 2024-09-07 15:15 | MR_ITS ---
WS: [id number] MRA HEAD TECHNIQUE: Axial 3-D TOF images obtained with axial images and axial, sagittal, and coronal 2-D reformatted images. CLINICAL INFORMATION: R sided weakness X 3d, CT neg COMPARISON: CT 08/15/2024 FINDINGS: Distal vertebral arteries are patent. Basilar artery is patent. Normal vascularity to the ANIMAL BEHAVIOURIST territory bilaterally. Both ICAs are patent at the skull base. Normal vascularity to the ALTON and MCA territories bilaterally. No evidence of proximal flow-limiting stenosis. MR/MR angio head wo con [id number] IMPRESSION: 1. No evidence of proximal flow-limiting stenosis. 2. Otherwise unremarkable intracranial MRA.
== END 2024-09-07 14:58 | disposition home or self-care (01) ==
LOC: RAD 14:58
PROVIDERS: PCP Family Medicine; Visit Provider Family Medicine
DX: I63.9 Cerebral infarction, unspecified (principal); H74.8X2 Other specified disorders of left middle ear and mastoid; G93.89 Other specified disorders of brain; H95.89 Other postprocedural complications and disorders of the ear and mastoid process, not elsewhere classified
CPT/HCPCS: 70544; 70551

== ENCOUNTER 2024-09-11 06:43 | Emergency (ER) | payer OTHER, SELFPAY ==
--- NOTE | 2024-09-11 06:54 | XR_ITS ---
WS: [id number] Portable AP upright chest, 09/11/2024 Clinical Data: dyspnea/cough Comparison: Portable chest, 05/21/2024 Findings: No nodules, masses or effusions are seen. The heart is normal. The pulmonary vascularity is not increased. No pneumonia or pneumothorax is seen. XR/XR chest 1V portable [id number] Impression: Negative chest.
--- NOTE | 2024-09-11 06:59 | W.ED.GENADLT ---
HPI - General Adult General: Chief complaint: Allergic Reaction Stated complaint: fever, hives Time Seen by Provider: 09/11/24 06:52 History of Present Illness: 58-year-old female presents emergency room with urticaria systemically. It began overnight. She cannot think anything new or different and she took no new medications. Had an episode of sweating last night. No fever sweats or chills. No shortness of breath. Associated symptoms: Reports rash; Deny chest pain or dyspnea Related Data Home Medications ?Medication ?Instructions ?Recorded ?Confirmed aspirin 81 mg tablet,delayed 81 mg PO DAILY 04/13/24 09/11/24 release acetaminophen 650 mg 650 mg PO Q12H PRN Pain 08/15/24 09/11/24 tablet,extended release ibuprofen 200 mg tablet (Advil) 400 mg PO Q6H PRN Pain (Scale 08/15/24 09/11/24 Score 1-3) lactobacillus combination no.4 3 3,000 mmu cells PO DAILY 08/15/24 09/11/24 billion cell capsule (Probiotic) velulzeo-ade-skdkh ac 400 1 tab PO DAILY 08/15/24 09/11/24 mcg-calcium carb 500 mg-vit K1 20 mcg tablet promethazine 25 mg tablet 25 mg PO Q6H PRN Nausea And 09/11/24 09/11/24 Vomiting rosuvastatin 40 mg tablet 40 mg PO DAILY 09/11/24 09/11/24 Previous Rx's ?Medication ?Instructions ?Recorded albuterol sulfate 90 mcg/actuation 2 puff inhalation Q6H PRN 04/13/24 aerosol inhaler shortness of breath or wheezing #3 ea montelukast 10 mg tablet 10 mg PO DAILY #90 tabs 04/13/24 (Singulair) omeprazole 20 mg capsule,delayed 20 mg PO DAILY #90 caps 04/13/24 release venlafaxine 75 mg capsule,extended 75 mg PO DAILY #90 caps 04/13/24 release 24 hr (Effexor XR) levothyroxine 50 mcg tablet 50 mcg PO DAILY #90 tabs 06/22/24 (Euthyrox) clopidogrel 75 mg tablet 75 mg PO DAILY #30 tabs 08/15/24 lisinopril 10 mg tablet 10 mg PO DAILY #90 tabs 08/16/24 cephalexin 500 mg capsule 500 mg PO TID 7 days #21 caps 09/11/24 cetirizine 10 mg tablet 10 mg PO BID #20 tabs 09/11/24 methylprednisolone 4 mg tablets in See Rx Instructions PO .COMPLEX 09/11/24 a dose pack (Medrol (Han)) #21 ea Allergies Allergy/AdvReac Type Severity Reaction Status Date / Time sulfa drugs Allergy hives Uncoded 09/07/24 12:32 Review of Systems Const: Denies: fever(s) or chills Card: Denies: chest pain Resp: Denies: dyspnea GI: Denies: abdominal pain : Denies: dysuria, urinary frequency or urinary urgency Musc: Denies: neck pain or back pain Skin/Breast: Reports: rash, pruritus, erythema and new lesions PFSH ED PFSH: Medical History Accelerated essential hypertension Moderate intrinsic asthma 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; no residual ; says it was due to covid shot Hx of deep venous thrombosis had 2 separate ones GERD without esophagitis Generalized anxiety disorder Hypercholesterolemia Colon polyps Hearing deficit Surgical History Hx of colonoscopy Hx of arthroscopy of right knee History of tympanoplasty of left ear bilateral H/O breast augmentation History of partial hysterectomy removed L oophorectomy; still has R ovary; done for heavy bleeding, no fibroids History of placement of ear tubes History of cholecystectomy H/O shoulder surgery right H/O foot surgery L foot; has 4 screws Family History Father No problems noted. 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 Physical Exam Const: GENERAL APPEARANCE: cooperative ORIENTATION/CONSCIOUSNESS: Yes awake, Yes oriented to person, Yes oriented to place and Yes oriented to time HENMT: COMMON NORMALS: normocephalic, atraumatic and hearing grossly normal bilaterally HEAD & SCALP: normocephalic and atraumatic Resp: COMMON NORMALS: normal respiratory effort, No retractions, No use of accessory muscles and clear to auscultation bilaterally AUSCULTATION: clear to auscultation bilaterally Cardio: COMMON NORMALS: regular rate, regular rhythm and No murmurs present (Cardio) RATE: regular rate RHYTHM: regular rhythm GI: COMMON NORMALS: Soft to palpation and No hepatosplenomegaly present AUSCULTATION: Yes normoactive bowel sounds PALPATION: Yes Soft to palpation, No Tenderness to palpation present (GI), No Guarding due to palpation present (GI) and Yes No hepatosplenomegaly present Extremity: COMMON NORMALS: normal to inspection, capillary refill normal, no clubbing, cyanosis or edema, no calf tenderness and no pedal edema Neuro: SENSORIUM/ORIENTATION: Yes oriented to person, Yes oriented to place and Yes oriented to time Skin: OTHER: Urticarial rash trunk and proximal extremities sparing of the face no vesicles Course Vital Signs: Vital signs: Vital Signs Temperature 97.7 F 09/11/24 07:02 Pulse Rate 81 09/11/24 09:36 Respiratory Rate 16 09/11/24 07:02 Blood Pressure 134/86 09/11/24 09:36 Pulse Oximetry 96 09/11/24 09:36 Oxygen Delivery Me thod Room Air 09/11/24 08:27 MDM - General Adult Medical Decision Making Patient urticarial reaction to unknown source. Overall she is doing respiratory compromise we will start her on Keflex for cystitis also use cetirizine and prednisone taper. Lab Data 09/11/24 07:29 09/11/24 07:29 Laboratory Results WBC 10.51 10^3/uL (3.29-11.43) 09/11/24 07:29 RBC 5.91 10^6/uL (3.85-5.65) H 09/11/24 07:29 Hgb 16.80 g/dL (11.27-16.99) 09/11/24 07:29 Hct 51.9 % (36-47) H 09/11/24 07:29 MCV 87.8 fl (85-98) 09/11/24 07:29 MCH 28.4 pg (27-33) 09/11/24 07:29 MCHC 32.4 g/dL (30-55) 09/11/24 07: RDW 13.8 % (12.1-15.1) 09/11/24 07: Plt Count 403 10^3/cmm (157-399) H 09/11/24 07: MPV 8.6 fL (7.4-10.4) 09/11/24 07: Neut % (Auto) 71.7 % 09/11/24 07: Lymph % (Auto) 22.9 % 09/11/24 07: [place] % (Auto) 4.2 % 09/11/24 07: Eos % (Auto) 0.6 % 09/11/24 07: Baso % (Auto) 0.3 % 09/11/24 07: Neut # (Auto) 7.54 10^3/uL (1.8-7.7) 09/11/24 07: Lymph # (Auto) 2.4 10^3/uL (0.8-4.8) 09/11/24 07: [place] # (Auto) 0.4 10^3/uL (0.2-0.9) 09/11/24 07: Eos # (Auto) 0.1 10^3/uL (0.0-0.8) 09/11/24 07: Baso # (Auto) 0.0 10^3/uL (0.0-0.1) 09/11/24 07: Nucleated RBC % (auto) 0 % 09/11/24 07: Nucleated RBCs # 0.0 /100WBC 09/11/24 07:29 Sodium 138 mmol/L (136-145) 09/11/24 07: Potassium 3.9 mmol/L (3.5-5.1) 09/11/24 07: Chloride 104 mmol/L (98-107) 09/11/24 07: Carbon Dioxide 20 mmol/L (22-29) L 09/11/24 07: Anion Gap 17.9 (5-19) 09/11/24 07: BUN 18 mg/dL (6-20) 09/11/24 07: Creatinine 0.5 mg/dL (0.5-0.9) 09/11/24 07:29 GFR Calculation 127.2 mL/min (90-130) 09/11/24 07: Glucose 137 mg/dL (65-115) H 09/11/24 07:29 Calculated Osmolality 290 mOsm/kg (285-295) 09/11/24 07: Calcium 9.0 mg/dL (8.5-10.5) 09/11/24 07: Total Bilirubin 0.5 mg/dL (0.15-1.2) 09/11/24 07: AST 27 U/L (0-32) 09/11/24 07: ALT 31 U/L (0-33) 09/11/24 07: Alkaline Phosphatase 106 U/L (35-105) H 09/11/24 07:29 Total Protein 7.4 g/dL (6.6-8.7) 09/11/24 07: Albumin 4.3 g/dL (3.5-5.2) 09/11/24 07: Globulin 3.1 g/dL (1.3-4.6) 09/11/24 07:29 Urine Color Dark yellow (Yellow) A 09/11/24 07:38 Urine Appearance Cloudy (CLEAR) A 09/11/24 07:38 Urine pH 5.5 (5-7) 09/11/24 07:38 Ur Specific Hallie 1.037 (1.005-1.030) H 09/11/24 07:38 Urine Protein 2+ (Negative) A 09/11/24 07:38 Urine Glucose (UA) Negative (Normal) 09/11/24 07:38 Urine Ketones Trace (Negative) 09/11/24 07:38 Urine Blood Negative (Negative) 09/11/24 07:38 Urine Nitrate Negative (Negative) 09/11/24 07:38 Urine Bilirubin 1+ (Negative) H 09/11/24 07:38 Urine Urobilinogen 1.0 mg/dL (Negative) 09/11/24 07:38 Ur Leukocyte Esterase 1+ (Negative) A 09/11/24 07:38 Urine RBC 3-5 /hpf (0-2) 09/11/24 07:38 Urine WBC 21-50 /hpf (0-5) H 09/11/24 07:38 Ur Squamous Epith Cells 0-5 /hpf (0-5) 09/11/24 07:38 Amorphous Sediment Not Reportable 09/11/24 07:38 Urine Bacteria None seen /hpf (NONE) 09/11/24 07:38 Hyaline Casts 21.48 /lpf 09/11/24 07:38 All radiology interpretation(s) finalized by discharge Discharge Plan Discharge Patient Disposition: Home Clinical Impression: Urticaria, Cystitis Condition: Stable Prescriptions: New cetirizine 10 mg tablet 10 mg PO BID Qty: 20 0RF methylprednisolone [Medrol (Han)] 4 mg tablets,dose pack See Rx Instructions .ROUTE .COMPLEX Qty: 21 0RF Rx Instructions: orally per package directions cephalexin 500 mg capsule 500 mg PO TID 7 Days Qty: 21 0RF No Action aspirin 81 mg tablet,delayed release (DR/EC) 81 mg PO DAILY venlafaxine [Effexor XR] 75 mg capsule,extended release 24hr 75 mg PO DAILY Qty: 90 3RF omeprazole 20 mg capsule,delayed release(DR/EC) 20 mg PO DAILY Qty: 90 3RF montelukast [Singulair] 10 mg tablet 10 mg PO DAILY Qty: 90 3RF albuterol sulfate 90 mcg/actuation HFA aerosol inhaler 2 puff inhalation Q6H PRN (Reason: shortness of breath or wheezing) Qty: 3 3RF lisinopril 10 mg tablet 10 mg PO DAILY Qty: 90 1RF levothyroxine [Euthyrox] 50 mcg tablet 50 mcg PO DAILY Qty: 90 3RF acetaminophen [Tylenol Arthritis] 650 mg Tablet Extended Release 650 mg PO Q12H PRN (Reason: Pain) ibuprofen [Advil] 200 mg Tablet 400 mg PO Q6H PRN (Reason: Pain (Scale Score 1-3)) One-A-Day Women's 50 Plus 400 mcg-500 mg calcium-20 mcg Tablet 1 tab PO DAILY Probiotic 3 billion cell Capsule 3,000 mmu cells PO DAILY Rx Instructions: administer with a meal clopidogrel 75 mg tablet 75 mg PO DAILY Qty: 30 0RF promethazine 25 mg tablet 25 mg PO Q6H PRN (Reason: Nausea And Vomiting) rosuvastatin 40 mg tablet 40 mg PO DAILY Discharge Orders: Discharge ED (Routine); Ordered 09/11/24 Ordered By: Yordy Mccarty Referrals: Gena Verdin MD [Primary Care Provider, [facility]] Discharge Diet: Usual diet Discharge Activity: Resume usual activity Patient Instructions: Opioid Safety, Pain Management Activity Restrictions/Additional Instructions: [facility]. It is very important that you follow up as instructed or that you return to the Emergency Department should you have concerns or if your condition changes or worsens in any way. You are seen in the emergency room with an allergic reaction. You do have urticaria which is an allergic reaction often we are not able to determine precisely what precipitated this. The treatment remains the same antihistamines and steroid taper. You were also noted to have a bladder infection recommend starting oral antibiotics 1 pill 3 times a day for 7 days Print Language: Bolivian Coding Level of Care Code ED Audit Director for [facility]
[2024-09-11 07:02] VITALS: BP 115/85; PULSE 84; RESP 16; TEMP 36.5; O2SAT 99; BMI 32.2
[2024-09-11] MEDS: methylPREDNISolone sod succ 125 mg/2 mL INJ IVP (07:38)
[2024-09-11] MEDS: diphenhydrAMINE 50 mg/mL SDV 1mL IVP (07:38)
[2024-09-11 07:58] LABS: Basophils % 0.3 %; Eosinophils # 0.1 10^3/uL (0.0-0.8); Eosinophils % 0.6 %; Hematocrit 51.9 % (36-47); Lymphocytes # 2.4 10^3/uL (0.8-4.8); Lymphocytes % 22.9 %; Mean Corpuscular HGB Conc 32.4 g/dL (30-55); Mean Corpuscular Hemoglobin 28.4 pg (27-33); Mean Corpuscular Volume 87.8 fl (85-98); Mean Platelet Volume 8.6 fL (7.4-10.4); Monocytes # 0.4 10^3/uL (0.2-0.9); Monocytes % 4.2 %; Neutrophils # 7.54 10^3/uL (1.8-7.7); Neutrophils % 71.7 %; Nucleated Red Blood Cells % 0 %; Platelet Count 403 10^3/cmm (157-399); Red Blood Count 5.91 10^6/uL (3.85-5.65); Red Cell Distribution Width 13.8 % (12.1-15.1); White Blood Count 10.51 10^3/uL (3.29-11.43)
[2024-09-11 08:10] LABS: Alanine Aminotransferase 31 U/L (0-33); Albumin Level 4.3 g/dL (3.5-5.2); Alkaline Phosphatase 106 U/L (35-105); Anion Gap 17.9 (5-19); Aspartate Amino Transferase 27 U/L (0-32); Blood Urea Nitrogen 18 mg/dL (6-20); Carbon Dioxide 20 mmol/L (22-29); Chloride 104 mmol/L (98-107); Globulin 3.1 g/dL (1.3-4.6); Glomerular Filtration Rate 127.2 mL/min (90-130); Glucose 137 mg/dL (65-115); Osmolality Calculated 290 mOsm/kg (285-295); Potassium 3.9 mmol/L (3.5-5.1); Sodium 138 mmol/L (136-145); Total Bilirubin 0.5 mg/dL (0.15-1.2); Total Protein 7.4 g/dL (6.6-8.7)
[2024-09-11 08:27] VITALS: PULSE 86; O2SAT 98
[2024-09-11 08:49] LABS: Bilirubin Urine 1+ (Negative); Blood Urine Negative (Negative); Glucose Urine UA Negative (Normal); Ketones Urine Trace (Negative); Leukocyte Esterase Urine 1+ (Negative); Nitrate Urine Negative (Negative); Protein Urine 2+ (Negative); Urine Appearance Cloudy (CLEAR); Urine Color Dark Yellow (Yellow); pH Urine 5.5 (5-7)
[2024-09-11 08:51] LABS: Add Urine Microscopic? YES; Bacteria Urine None Seen /hpf; Hyaline Casts Urine 21.48 /lpf; Squamous Epithelial Cell Urine 0-5 /hpf (0-5); WBC Urine 21-50 /hpf (0-5)
[2024-09-11 09:03] LABS: Add Urine Culture? Yes; Specific Gravity, Urine 1.037 (1.005-1.030); UA Slide Review UA Slide Review Perf
[2024-09-11 09:36] VITALS: BP 134/86; PULSE 81; O2SAT 96
== END 2024-09-11 09:38 | disposition home or self-care (01) ==
PROVIDERS: Emergency Provider Family Medicine; PCP Family Medicine
DX: L50.9 Urticaria, unspecified (principal); N30.90 Cystitis, unspecified without hematuria; Z79.82 Long term (current) use of aspirin; Z79.02 Long term (current) use of antithrombotics/antiplatelets; I10 Essential (primary) hypertension
CPT/HCPCS: 71045; 80053; 81001; 85025; 87086; 96374; 96375; 99284; J1200; J2919

== ENCOUNTER → 2024-09-21 09:21 | Outpatient (BNVA) | payer OTHER, SELFPAY | PROVIDERS: PCP Family Medicine; Visit Provider Nurse Practitioner | DX: M75.02 Adhesive capsulitis of left shoulder (principal); S43.432A Superior glenoid labrum lesion of left shoulder, initial encounter; S43.499A Other sprain of unspecified shoulder joint, initial encounter; X58.XXXA Exposure to other specified factors, initial encounter | CPT/HCPCS: 73560; 73565 ==

== ENCOUNTER → 2024-10-08 09:38 | Outpatient (BNVA) | payer OTHER, SELFPAY | PROVIDERS: PCP Family Medicine; Visit Provider Family Medicine | DX: N30.00 Acute cystitis without hematuria (principal) | CPT/HCPCS: 87086 ==

== ENCOUNTER → 2025-01-01 10:48 | Outpatient (BNVA) | payer OTHER, SELFPAY | PROVIDERS: PCP Family Medicine; Visit Provider Nurse Practitioner | DX: J02.0 Streptococcal pharyngitis (principal) | CPT/HCPCS: 87426; 87880 ==

== ENCOUNTER 2025-03-13 12:51 | Outpatient (CLI) | payer OTHER, SELFPAY ==
--- NOTE | 2025-03-13 12:58 | MM_ITS ---
WS: [id number] BILATERAL 3D TOMOSYNTHESIS DIGITAL SCREENING MAMMOGRAPHY WITH CAD CLINICAL INFORMATION: SCREENING HISTORY: Screening mammogram. No current complaints. COMPARISON: 2023 TECHNIQUE: Bilateral CC and MLO views. FINDINGS: Stable bilateral breast implants The breasts are composed of heterogeneous fibroglandular density tissue, which can limit the detection of small underlying mass lesions. No suspicious mass, asymmetry, calcifications, or architectural distortion. No evidence of malignancy. Punctate and lucent centered calcifications. Vascular calcification. Biopsy clip LEFT breast MM/MM scr tomosynthesis [id number] IMPRESSION: DENSITY: The breasts are heterogeneously dense, which may obscure small masses. BI-RADS: 2 - Benign FOLLOW UP: 1 Year Follow-up Recommend return to annual screening mammography.
== END 2025-03-13 12:52 | disposition home or self-care (01) ==
LOC: RAD 12:53
PROVIDERS: PCP Family Medicine; Visit Provider Family Medicine
DX: Z12.31 Encounter for screening mammogram for malignant neoplasm of breast (principal); R92.333 Mammographic heterogeneous density, bilateral breasts; R92.323 Mammographic fibroglandular density, bilateral breasts; R92.1 Mammographic calcification found on diagnostic imaging of breast; Z96.89 Presence of other specified functional implants
CPT/HCPCS: 77063; 77067